=== PATIENT | female | born 2000 | race American Indian/Alaskan Native ===

== ENCOUNTER 2020-10-08 08:06 | Emergency (ER) | payer MEDICAID ==
[2020-10-08 08:51] VITALS: BP 111/74
[2020-10-08] MEDS ORDERED: IBUPROFEN 600 MG TAB PO ONE (10:16)
--- NOTE | 2020-10-08 10:16 | Emergency Department Report ---
ED Lower Extremity HPI - General Chief Complaint: Extremity Injury, Lower Stated Complaint: RT ANKLE PAIN Time Seen by Provider: 10/08/20 09:56 Source: patient Mode of arrival: Ambulatory Limitations: No Limitations - History of Present Illness Initial Comments: 19-year-old female with no significant past medical history presents to the ER today complaining of right ankle pain. Patient states that she was walking when she twisted her right ankle. She states that this occurred this past Wednesday. She reports pain and swelling to the ankle. She states that she applied ice which did help bring some of the swelling down. She has not tried anything for pain. She states pain is worse with ambulation and weightbearing. She reports that she sprained her ankle about 2 years ago but other than that denies any other injury to her right ankle or foot. She denies any other symptoms at this time. Complaint: ankle injury -: Sudden (wednesday ) - Related Data Previous Rx's Medication Instructions Recorded Last Taken Type Ibuprofen [Motrin] 800 mg PO Q8HR PRN #30 tablet 10/08/20 Unknown Rx Allergies Allergy/AdvReac Type Severity Reaction Status Date / Time No Known Allergies Allergy Unverified 10/08/20 08:51 ED Review of Systems ROS: Stated complaint: RT ANKLE PAIN Other details as noted in HPI Comment: All other systems reviewed and negative Musculoskeletal: joint swelling, arthralgia ED Past Medical Hx - Social History Smoking Status: Never Smoker - Medications Home Medications: Home Medications Medication Instructions Recorded Confirmed Last Taken Type Ibuprofen [Motrin] 800 mg PO Q8HR PRN #30 tablet 10/08/20 Unknown Rx ED Physical Exam - General Limitations: No Limitations General appearance: alert, in no apparent distress - Respiratory Respiratory exam: Absent: respiratory distress - Cardiovascular Cardiovascular Exam: Present: regular rate - Extremities Exam Extremities exam: Present: other (There is moderate tenderness to palpation to the lateral aspect of the right ankle with some mild swelling. No apparent deformity, erythema or ecchymosis noted. Range of motion of the ankle is mildly reduced due to pain. Neurovascularly intact right lower extremity.) - Neurological Exam Neurological exam: Present: alert, oriented X3, CN II-XII intact, abnormal gait (Limping gait, right foot, secondary to pain) - Psychiatric Psychiatric exam: Present: normal affect, normal mood - Skin Skin exam: Present: intact ED Course Vital Signs 10/08/20 08:49 Temperature 98 F Pulse Rate 79 Respiratory 18 Rate Blood Pressure 111/74 O2 Sat by Pulse 100 Oximetry ED Lower Extremity MDM - Radiology Data Radiology results: report reviewed - Medical Decision Making X-ray of the right ankle reviewed. Nothing acute on x-ray. Suspect sprain at this time. Patient placed in ankle air splint and given crutches. Discussed x- ray results, diagnosis and treatment plan with patient. Patient expresses understanding of instructions and agree with plan. Patient stable at time of discharge. Critical care attestation.: If time is entered above; I have spent that time in minutes in the direct care of this critically ill patient, excluding procedure time. ED Disposition Clinical Impression: Right ankle sprain Disposition: TO HOME OR SELFCARE Is pt being admited?: No Does the pt Need Aspirin: No Condition: Stable Instructions: Ankle Sprain, [id number] Additional Instructions: Continue to rest, ice and elevate your right foot for the next 2 to 3 days. Take the Motrin as prescribed to help with pain and swelling. Follow-up with the small engine specialist in 7 to 10 days if your symptoms persist. Return to the ER if your symptoms changes or worsens in any way. Prescriptions: Ibuprofen [Motrin] 800 mg PO Q8HR PRN #30 tablet PRN Reason: PAIN Referrals: CHELSEY FORBES MD [Staff Physician] - 7-10 days Forms: Work/School Release Form(ED) Time of Disposition: 11:09
--- NOTE | 2020-10-08 10:48 | XRay Report ---
RIGHT ANKLE 3 VIEW(S) INDICATION / CLINICAL INFORMATION: twisted ankle COMPARISON: None available. FINDINGS: BONES / JOINT(S): No acute fracture or subluxation. No significant arthritis. SOFT TISSUES: Mild ankle edema. ADDITIONAL FINDINGS: None. Signer Name: Angelo Briscoe MD Signed: 10/08/2020 10:43 AM Workstation Name: [id number]
== END 2020-10-08 13:09 | disposition home or self-care (01) ==
LOC: EDBD → ED 08:06
DX: S93.401A Sprain of unspecified ligament of right ankle, initial encounter (principal); Z79.899 Other long term (current) drug therapy; X50.1XXA Overexertion from prolonged static or awkward postures, initial encounter; Y93.89 Activity, other specified; Y92.89 Other specified places as the place of occurrence of the external cause; Y99.8 Other external cause status